=== PATIENT | male | born 1955 | race Caucasian/White ===

== ENCOUNTER 2018-09-17 07:55 | Emergency (ER) | payer SELFPAY ==
[~2018-09-17] VITALS: Ht 175.2 cm; Wt 101.2 kg
[2018-09-17 09:31] LABS: BILIRUBIN NEGATIVE (NEGATIVE); BLOOD 3+ (NEGATIVE); CLARITY CLOUDY (CLEAR); COLOR YELLOW (YELLOW); GLUCOSE NEGATIVE (NEGATIVE); KETONE TRACE (NEGATIVE); LEUKO ESTERASE NEGATIVE (NEGATIVE); NITRITE NEGATIVE (NEGATIVE); PH 5.5 (5.0-9.0); SPECIFIC GRAVITY >= 1.030 (1.005-1.030); UROBILINOGEN 0.2 E.U./dl (0.2-1.0)
[2018-09-17 09:49] LABS: RBC TNTC rbc/hpf (0-2)
[2018-09-17 09:50] LABS: BACTERIA 1+; MUCOUS 2+
[2018-09-17] MEDS ORDERED: KETOROLAC10 MG PO (10:16)
== END 2018-09-17 10:22 | disposition home or self-care (01) ==
LOC: ED 07:55
PROVIDERS: Emergency Medicine
DX: N13.2 Hydronephrosis with renal and ureteral calculous obstruction (principal)

== ENCOUNTER → 2021-05-19 | Outpatient (CLI) | payer BC ==
[~2021-05-19] MED LIST: KETOROLAC10 MG PO
[2021-05-19 07:27] LABS: HEMATOCRIT 44.6 % (42.0-52.0); MEAN CELL VOLUME 87.8 fl (80.0-94.0); MEAN CORPUSCULAR HGB 29.3 pg (27.0-31.0); MEAN CORPUSCULAR HGB CONC 33.4 g/dl (33.0-37.0); MEAN PLATELET VOLUME 10.2 fl (9.6-12.3); RED BLOOD COUNT 5.08 10*6/uL (4.50-5.90); RED CELL DISTRI WIDTH 12.4 % (0-14.5); WHITE BLOOD COUNT 7.2 10*3/uL (4.8-10.8)
[2021-05-19 07:44] LABS: ALKALINE PHOSPHATASE 93 U/L (45-117); BUN 15 mg/dl (7-24); CHLORIDE 105 mmol/L (98-107); CHOLESTEROL 129 mg/dL (<200); CREATININE 0.93 mg/dL (0.70-1.30); LDL CHOLESTEROL 59 mg/dL (9-159); POTASSIUM 4.5 mmol/L (3.5-5.1); SGOT/AST 18 IU/L (3-35); SGPT/ALT 47 U/L (12-78); SODIUM 136 mmol/L (136-145); TOTAL PROTEIN 7.7 gm/dL (6.4-8.2); TRIGLYCERIDES 82 mg/dl (<150)
== END | disposition home or self-care (01) ==
LOC: LAB 07:04
PROVIDERS: ATTEND Physician Assistant
DX: I10 Essential (primary) hypertension (principal); E11.9 Type 2 diabetes mellitus without complications; F51.04 Psychophysiologic insomnia

== ENCOUNTER → 2021-08-14 | Day surgery (SDC) | payer BC ==
[~2021-08-14] VITALS: Ht 175.2 cm; Wt 99.8 kg
[~2021-08-14] MED LIST changes: +AMBIEN5 MG PO; +METAMUCIL POWD798 GM PO; +PERCOCET 5-3251 EACH PO; +VITAMIN B COMP1 EAC1 PO; +VITAMIN B122500 MCG PO
[2021-08-14 07:11] VITALS: BP 158/94
[2021-08-14 08:13] VITALS: BP 125/78
[2021-08-14 08:28] VITALS: BP 136/88
[2021-08-14 08:43] VITALS: BP 123/74
== END | disposition home or self-care (01) ==
LOC: SDC 08-11 09:30
PROVIDERS: ATTEND Surgery
DX: D48.1 Neoplasm of uncertain behavior of connective and other soft tissue (principal); D17.21 Benign lipomatous neoplasm of skin and subcutaneous tissue of right arm; Z79.899 Other long term (current) drug therapy

== ENCOUNTER → 2021-10-21 | Outpatient (CLI) | payer BC | LOC: US 07:56 | PROVIDERS: ATTEND Physician Assistant | DX: K76.0 Fatty (change of) liver, not elsewhere classified (principal); E11.9 Type 2 diabetes mellitus without complications; R10.13 Epigastric pain; K21.9 Gastro-esophageal reflux disease without esophagitis ==

== ENCOUNTER → 2021-11-13 | Day surgery (SDC) | payer BC ==
[~2021-11-13] VITALS: Ht 177.8 cm; Wt 99.8 kg
[~2021-11-13] MED LIST changes: +CARAFATE1 G1 PO; +NORVASC5 MG PO; +PEPCID20 MG PO; +TOPROL XL25 MG PO
[2021-11-13 08:24] VITALS: BP 145/68
[2021-11-13 09:18] VITALS: BP 96/79
[2021-11-13 09:33] VITALS: BP 110/59
[2021-11-13 09:48] VITALS: BP 126/78
== END | disposition home or self-care (01) ==
LOC: SDC 11-10 10:15
PROVIDERS: ATTEND Surgery
DX: K21.00 Gastro-esophageal reflux disease with esophagitis, without bleeding (principal); K29.50 Unspecified chronic gastritis without bleeding; I10 Essential (primary) hypertension; Z79.899 Other long term (current) drug therapy

== ENCOUNTER → 2023-04-12 | Outpatient (CLI) | payer MEDICARE, OTHER | END | disposition home or self-care (01) | LOC: US 04:00 | PROVIDERS: ATTEND Physician Assistant | DX: R22.1 Localized swelling, mass and lump, neck (principal) ==